=== PATIENT | female | born 1940 | race Caucasian/White ===

== ENCOUNTER → 2024-10-12 07:34 | Outpatient (REF) | payer OTHER, SELFPAY | LOC: RAD 07:34 | PROVIDERS: ATTENDING PHYSICIAN Physician Assistant; FAMILY PHYSICIAN Nurse Practitioner Family | DX: K31.84 Gastroparesis (principal); K21.9 Gastro-esophageal reflux disease without esophagitis | CPT/HCPCS: 74246 ==